=== PATIENT | female | born 1940 | race Caucasian/White ===

== ENCOUNTER 2016-04-23 05:18 | Day surgery (SDC) | payer OTHER ==
[~2016-04-23] VITALS: Ht 160 cm; Wt 79.4 kg
--- NOTE | ~2016-04-23 | O ---
[facility] [place] [address] OPERATIVE REPORT Name: RAINE AGUIRRE Room #: DEP [facility] [place] M.R.#: [id number] Admission: 04/23/16 Attend Phys: Bassem Keane MD Discharge: 04/23/16 Date of : 42 Report #: [id number] THIS REPORT FOR: //name// CC: Juvenal Keane DATE OF SERVICE: 04/23/2016 PREOPERATIVE DIAGNOSIS: Nasal fracture. POSTOPERATIVE DIAGNOSIS: Nasal fracture. NAME OF THE PROCEDURE: Closed nasal fracture reduction. SURGEON: Bassem Keane MD ANESTHESIA: General LMA. INDICATIONS FOR THE PROCEDURE: See H and P. TECHNIQUE: After obtaining consent, she was brought to the operating suite and appropriate timeout was performed. General LMA anesthesia was obtained by anesthesia maintained throughout the case. Nose was prepped and draped in usual sterile fashion. Cottonoids soaked with Afrin were placed in each side of the nares for reduction of congested nasal mucosa. Upon removing these after 3 or 5 minutes, I then used a Lavaca elevator and measured this to the appropriate length just short of the medial canthus. This was introduced into the right naris with significant anterior and slightly lateral distraction, loud audible click was heard and felt by digital manipulation bringing the right fracture fragment anteriorly and back in the location. By visualization, this appeared to improve the nasal airway superiorly slightly. I then used the Jose forceps to make sure disimpaction was equal on both sides and it appeared to be so. At that point, I placed a single piece of Merogel on the right side to help prevent any medialization of the fracture fragment. Mastisol was applied to the skin followed by a brown tape and a Thermoplast splint. She was allowed to awaken from anesthesia and went to recovery room in stable condition. <ELECTRONICALLY SIGNED> By: Bassem Keane MD 04/26/16 0845 1228 1400 Bassem Keane MD /nt
--- NOTE | ~2016-04-23 | EKG ---
[place] [address] [address] [facility] [place] [address] ELECTROCARDIOGRAM REPORT Name: RAINE AGUIRRE Room #: DEP [facility].#: [id number] Admission: 04/23/16 Attend Phys: Bassem Keane MD Discharge: 04/23/16 Date of : 42 Report #: [id number] THIS REPORT FOR: //name// [facility] Test Date: 2016-04-23 Test Time: 10:49:32 Pat Name: RAINE AGUIRRE Department: Room: 150 10 Gender: F Senior Genetic Counselor: GABRIELE : 1940 Requested By: Bassem Keane Order Number: [id number] MD: Armani Franco Measurements Intervals [place] Rate: 76 P: 61 WV: 154 QRS: -60 QRSD: 126 T: 73 QT: 425 QTc: 478 Interpretive Statements Sinus rhythm Ventricular premature complex Nonspecific IVCD with LAD Left ventricular hypertrophy Anterior infarct, old No previous ECG available for comparison Electronically Signed On 04-23-2016 14:59:26 IMMIGRATION COORDINATOR by Armani Franco [email or web address] <ELECTRONICALLY SIGNED> By: Armani Franco MD 04/23/16 1459 1049 1049 Armani Franco MD /ARASH
[~2016-04-23 05:18] MED LIST: ASPIR 8181 MG PO; CALCIUM 600 +1 EAC1 PO; CENTRUM SILVER1 EAC4 PO; GLUMETZA500 PO; HYZAAR 50-12.51 EACH PO; KEFLEX500 MG PO; NEXIUM40 MG PO; NORCO 5-325 TA1 EACH PO; PERCOCET 5-3251 EACH PO; ZOCOR20 MG PO; ZOLOFT25 MG PO
[2016-04-23 11:14] VITALS: BP 147/86
[2016-04-23 11:51] LABS: CREATININE 0.8 mg/dL (0.6-1.3); POTASSIUM 4.1 mmol/L (3.5-5.1)
[2016-04-23 12:54] VITALS: BP 147/86
== END 2016-04-23 13:00 | disposition home or self-care (01) ==
LOC: OR 05:18 → TBA 05:18 → OR 13:00
PROVIDERS: Otolaryngology
DX: S02.2XXA Fracture of nasal bones, initial encounter for closed fracture (principal); I10 Essential (primary) hypertension; E78.00 Pure hypercholesterolemia, unspecified; E11.9 Type 2 diabetes mellitus without complications; K21.9 Gastro-esophageal reflux disease without esophagitis; F17.210 Nicotine dependence, cigarettes, uncomplicated; Z98.890 Other specified postprocedural states; W19.XXXA Unspecified fall, initial encounter; Y93.89 Activity, other specified; Y92.89 Other specified places as the place of occurrence of the external cause; Y99.8 Other external cause status
CPT/HCPCS: 10086; 50010; 50101; 51313; 53635; 62110; 62900; 70005

== ENCOUNTER 2016-10-19 09:52 | Emergency (ER) | payer OTHER ==
[~2016-10-19] VITALS: Ht 160 cm; Wt 82.6 kg
[2016-10-19 10:12] LABS: URINE BILIRUBIN NEGATIVE (Negative); URINE BLOOD NEGATIVE (Negative); URINE COLOR YELLOW; URINE GLUCOSE-RANDOM* NEGATIVE (Negative); URINE KETONES NEGATIVE (Negative); URINE NITRITE NEGATIVE (Negative); URINE PROTEIN (DIPSTICK) NEGATIVE (Negative); URINE UROBILINOGEN 0.2 E.U./dl (0.2-1.0)
[2016-10-19 10:21] LABS: ABSOLUTE NEUTROPHILS 4.3 thou/uL (1.4-8.2); BASOPHILS 0.6 % (0.0-2.0); EOSINOPHILS 4.6 % (0.0-3.0); HEMATOCRIT 42.3 % (37.0-47.0); HEMOGLOBIN 14.6 gm/dL (12.0-15.0); LYMPHOCYTES 38.1 % (24.0-44.0); MANUAL DIFF NO; MCH 29.6 pg (26.0-34.0); MCHC 34.6 g/dL (28.0-37.0); MCV 85.5 fL (80.0-100.0); MONOCYTES 6.8 % (1.0-8.0); PLATELET COUNT 169 thou/uL (150-400); POLYS 49.9 % (36.0-66.0); RBC 4.96 mil/uL (4.20-5.00); RDW 14.9 % (10.5-14.5); WBC 8.7 thou/uL (4.0-11.0)
[2016-10-19 10:48] LABS: ALBUMIN 3.5 g/dL (3.4-5.0); CALCIUM 9.3 mg/dL (8.5-10.1); CREATININE 0.9 mg/dL (0.6-1.0); DIRECT BILIRUBIN 0.1 mg/dL (<0.1-0.3); POTASSIUM 4.1 mmol/L (3.5-5.1); TOTAL BILIRUBIN 0.5 mg/dL (<0.1-1.0); TOTAL PROTEIN 7.1 g/dL (6.4-8.2)
[2016-10-19] MEDS ORDERED: NORCO 5-325 TA1 EACH PO (11:21)
== END 2016-10-19 11:22 | disposition home or self-care (01) ==
LOC: ER 09:52
PROVIDERS: Emergency Medicine
DX: R10.31 Right lower quadrant pain (principal); E11.9 Type 2 diabetes mellitus without complications; E78.00 Pure hypercholesterolemia, unspecified; K21.9 Gastro-esophageal reflux disease without esophagitis; I10 Essential (primary) hypertension; F17.210 Nicotine dependence, cigarettes, uncomplicated; F10.99 Alcohol use, unspecified with unspecified alcohol-induced disorder; Z88.2 Allergy status to sulfonamides

== ENCOUNTER 2017-05-08 19:59 | Inpatient (IN) | payer OTHER ==
[~2017-05-08] VITALS: Ht 157.5 cm; Wt 81.6 kg
[2017-05-08 20:01] VITALS: BP 183/74
[2017-05-08 20:46] LABS: BASOPHILS 0.6 % (0.0-2.0); EOSINOPHILS 4.2 % (0.0-3.0); HEMATOCRIT 39.4 % (37.0-47.0); HEMOGLOBIN 13.5 gm/dL (12.0-15.0); LYMPHOCYTES 38.4 % (24.0-44.0); MCH 29.1 pg (26.0-34.0); MCHC 34.3 g/dL (28.0-37.0); MCV 84.8 fL (80.0-100.0); MONOCYTES 6.4 % (1.0-8.0); PLATELET COUNT 183 thou/uL (150-400); POLYS 50.4 % (36.0-66.0); RBC 4.65 mil/uL (4.20-5.00); RDW 14.5 % (10.5-14.5)
[2017-05-08 20:58] LABS: CALCIUM 9.6 mg/dL (8.5-10.1)
[2017-05-08 21:03] LABS: ALBUMIN 3.5 g/dL (3.4-5.0); DIRECT BILIRUBIN 0.2 mg/dL (<0.1-0.3); TOTAL BILIRUBIN 0.4 mg/dL (<0.1-1.0); TOTAL PROTEIN 7.3 g/dL (6.4-8.2)
[2017-05-08 22:39] LABS: URINE BILIRUBIN NEGATIVE (Negative); URINE BLOOD NEGATIVE (Negative); URINE CLARITY CLEAR; URINE COLOR YELLOW; URINE GLUCOSE-RANDOM* NEGATIVE (Negative); URINE KETONES NEGATIVE (Negative); URINE LEUKOCYTES NEGATIVE (Negative); URINE NITRITE NEGATIVE (Negative); URINE PROTEIN (DIPSTICK) NEGATIVE (Negative); URINE SPECIFIC GRAVITY <= 1.005 (1.005-1.035); URINE UROBILINOGEN 0.2 E.U./dl (0.2-1.0)
[2017-05-08] MEDS ORDERED: PLAVIX 75 MG TA75 M1 PO (23:22)
[2017-05-08] MEDS ORDERED: LOSARTAN-HCTZ1 EACH PO (23:22)
[2017-05-09 04:39] LABS: HEMOGLOBIN 12.4 gm/dL (12.0-15.0); MCH 28.6 pg (26.0-34.0); MCHC 33.4 g/dL (28.0-37.0); MCV 85.6 fL (80.0-100.0); RBC 4.32 mil/uL (4.20-5.00); RDW 14.7 % (10.5-14.5); WBC 7.8 thou/uL (4.0-11.0)
[2017-05-09 04:59] LABS: CALCIUM 8.5 mg/dL (8.5-10.1); CREATININE 0.8 mg/dL (0.6-1.0); POTASSIUM 4.2 mmol/L (3.5-5.1)
[2017-05-09 12:23] VITALS: BP 143/67
[2017-05-09 15:05] VITALS: BP 132/78
[2017-05-09 15:29] VITALS: BP 163/66
[2017-05-09 20:12] VITALS: BP 152/73
[2017-05-10 04:24] VITALS: BP 110/67
[2017-05-10 07:36] VITALS: BP 133/44
[2017-05-10 16:00] VITALS: BP 139/55
[2017-05-10 19:14] VITALS: BP 130/51
[2017-05-11 04:25] VITALS: BP 137/55
[2017-05-11 07:15] VITALS: BP 140/58
[2017-05-11] MEDS ORDERED: AUGMENTIN 875-1 EACH PO (09:48)
[2017-05-11 10:51] VITALS: BP 140/58
== END 2017-05-11 13:57 | disposition home or self-care (01) | DRG 392 ==
LOC: ER 19:59 → EROBS 23:02 → 4S 05-09 14:34
PROVIDERS: Emergency Medicine; Nurse Practitioner Family
DX: K57.32 Diverticulitis of large intestine without perforation or abscess without bleeding (principal); R47.01 Aphasia; N82.8 Other female genital tract fistulae; I69.951 Hemiplegia and hemiparesis following unspecified cerebrovascular disease affecting right dominant side; E11.9 Type 2 diabetes mellitus without complications; K44.9 Diaphragmatic hernia without obstruction or gangrene; I10 Essential (primary) hypertension; E78.5 Hyperlipidemia, unspecified; E66.9 Obesity, unspecified; Z68.32 Body mass index [BMI] 32.0-32.9, adult; K21.9 Gastro-esophageal reflux disease without esophagitis; Z88.2 Allergy status to sulfonamides; Z79.899 Other long term (current) drug therapy; Z79.82 Long term (current) use of aspirin; Z86.711 Personal history of pulmonary embolism; Z90.710 Acquired absence of both cervix and uterus; Z87.891 Personal history of nicotine dependence; I69.920 Aphasia following unspecified cerebrovascular disease
CPT/HCPCS: 10100

== ENCOUNTER 2018-03-15 18:39 | Inpatient (IN) | payer OTHER ==
[~2018-03-15] VITALS: Ht 186.8 cm; Wt 90.1 kg
--- NOTE | ~2018-03-15 | EKG ---
[place] [address] [facility] [place] [address] ELECTROCARDIOGRAM REPORT Name: RAINE AGUIRRE Room #: 201-P ADM IN M.R.#: [id number] Admission: 03/15/18 Attend Phys: Jenaro Morelos MD Discharge: Date of : 42 Report #: [id number] THIS REPORT FOR: //name// [facility] ED Test Date: 2018-03-15 Test Time: 19:07:16 Pat Name: RAINE AGUIRRE Department: Room: 201 Gender: F [employer] Assistant: claudia : 1940 Requested By: Daron Hogue Order Number: [id number] MD: Ray Thompson Measurements Intervals [place] Rate: 80 P: 66 RI: 161 QRS: -60 QRSD: 116 T: 51 QT: 398 QTc: 460 Interpretive Statements Sinus rhythm Multiple ventricular premature complexes right atrial enlargement Left anterior fascicular block Anterior infarct, old Compared to ECG 04/23/2016 10:49:32 no significant changes Electronically Signed On 03-15-2018 23:58:21 FRICTION SAW OPERATOR by Ray Thompson [email or web address] <ELECTRONICALLY SIGNED> By: Ray Thompson MD 03/15/18 3058 [id number] 190 Ray Thompson MD /EPI
[~2018-03-15 18:39] MED LIST changes: +AUGMENTIN 875-1 EACH PO; +LOSARTAN-HCTZ1 EACH PO; +PLAVIX 75 MG TA75 M1 PO
[2018-03-15 18:41] VITALS: BP 109/75
[2018-03-15 19:33] LABS: ABSOLUTE NEUTROPHILS 3.4 thou/uL (1.4-8.2); BASOPHILS 0.7 % (0.0-2.0); EOSINOPHILS 4.3 % (0.0-3.0); HEMATOCRIT 38.6 % (37.0-47.0); HEMOGLOBIN 13.5 gm/dL (12.0-15.0); LYMPHOCYTES 41.8 % (24.0-44.0); MCH 29.1 pg (26.0-34.0); MCHC 34.9 g/dL (28.0-37.0); MCV 83.2 fL (80.0-100.0); MONOCYTES 8.1 % (1.0-8.0); PLATELET COUNT 208 thou/uL (150-400); POLYS 45.1 % (36.0-66.0); RBC 4.64 mil/uL (4.20-5.00); RDW 14.2 % (10.5-14.5); WBC 7.5 thou/uL (4.0-11.0)
[2018-03-15 19:42] LABS: ANION GAP 8 mmol/L (7-16); BUN 18 mg/dL (7-18); CALCIUM 9.4 mg/dL (8.5-10.1); CHLORIDE 101 mmol/L (98-107); CO2 29 mmol/L (21-32); CREATININE 1.1 mg/dL (0.6-1.0); GLUCOSE 127 mg/dL (74-106); POTASSIUM 3.9 mmol/L (3.5-5.1); SODIUM 138 mmol/L (136-145)
[2018-03-15 19:50] LABS: ALBUMIN 3.5 g/dL (3.4-5.0); LIPASE 52 U/L (73-393); SGOT 15 U/L (15-37); SGPT 17 U/L (30-65); TOTAL BILIRUBIN 0.4 mg/dL (<0.1-1.0); TOTAL PROTEIN 7.2 g/dL (6.4-8.2); TROPONIN-I <0.06 ng/mL (<0.06)
[2018-03-15 20:08] LABS: URINE BLOOD NEGATIVE (Negative); URINE CLARITY CLEAR; URINE COLOR YELLOW; URINE GLUCOSE-RANDOM* NEGATIVE (Negative); URINE KETONES 1+ (Negative); URINE LEUKOCYTES-REFLEX NEGATIVE (Negative); URINE NITRITE-REFLEX NEGATIVE (Negative); URINE PROTEIN (DIPSTICK) TRACE (Negative); URINE SPECIFIC GRAVITY >= 1.030 (1.005-1.035)
[2018-03-15 20:09] LABS: ICTOTEST (BILI CONFIRMATORY) Negative (Negative); URINE BILIRUBIN NEGATIVE (Negative)
[2018-03-15 20:24] LABS: HYALINE CASTS 0-3 Few /LPF (None Seen); SQUAMOUS 0-3 Few /LPF (0-3); URINE WBC-REFLEX 6-15 Few /HPF (0-5)
[2018-03-15 20:25] LABS: BACTERIA-REFLEX 1-9 Few /HPF (None Seen); CRYSTALS None Seen /LPF (None Seen); URINE RBC None Seen /HPF (0-2)
[2018-03-15 21:52] VITALS: BP 119/39
[2018-03-15 22:30] VITALS: BP 134/50
[2018-03-15 23:30] LABS: CHOLESTEROL 160 mg/dL (<200); HDL CHOLESTEROL 46 mg/dL (>40); LDL CHOLESTEROL 86 mg/dL (<100); TC:HDL 3.5 Ratio (Not establshd); TRIGLYCERIDE 142 mg/dL (<150); VLDL 28 mg/dL (<40)
[2018-03-15 23:33] LABS: SERUM ASSESSMENT Slight Lipemia
[2018-03-16 03:40] VITALS: BP 126/58
[2018-03-16 05:58] LABS: CALCIUM 8.1 mg/dL (8.5-10.1); CREATININE 0.8 mg/dL (0.6-1.0); POTASSIUM 4.2 mmol/L (3.5-5.1)
[2018-03-16 08:44] VITALS: BP 101/54
[2018-03-16 10:31] VITALS: BP 109/71
[2018-03-16 15:16] VITALS: BP 140/53
[2018-03-16 20:27] VITALS: BP 127/47
[2018-03-16 22:06] LABS: GLYCOHEMOGLOBIN (HGB A1C) 6.5 % (4.8-5.6)
[2018-03-17 04:06] LABS: ABSOLUTE NEUTROPHILS 3.2 thou/uL (1.4-8.2); BASOPHILS 0.8 % (0.0-2.0); EOSINOPHILS 5.3 % (0.0-3.0); HEMATOCRIT 33.5 % (37.0-47.0); LYMPHOCYTES 36.2 % (24.0-44.0); MCH 28.7 pg (26.0-34.0); MCHC 33.9 g/dL (28.0-37.0); MCV 84.5 fL (80.0-100.0); MONOCYTES 6.6 % (1.0-8.0); PLATELET COUNT 171 thou/uL (150-400); POLYS 51.1 % (36.0-66.0); RBC 3.97 mil/uL (4.20-5.00); RDW 14.3 % (10.5-14.5); WBC 6.3 thou/uL (4.0-11.0)
[2018-03-17 04:08] LABS: HEMOGLOBIN 11.4 gm/dL (12.0-15.0)
[2018-03-17 04:15] LABS: CALCIUM 8.9 mg/dL (8.5-10.1); CREATININE 0.7 mg/dL (0.6-1.0); POTASSIUM 3.9 mmol/L (3.5-5.1)
[2018-03-17 05:30] VITALS: BP 144/64
[2018-03-17 07:15] VITALS: BP 143/62
[2018-03-17 11:15] VITALS: BP 136/51
[2018-03-17 15:25] VITALS: BP 123/46
[2018-03-17 20:07] VITALS: BP 122/62
[2018-03-18 04:45] VITALS: BP 145/60
[2018-03-18] MEDS ORDERED: AZITHROMYCIN 2250 MG PO (09:36)
[2018-03-18] MEDS ORDERED: CEFUROXIME250 MG PO (09:37)
[2018-03-18 10:00] VITALS: BP 145/60
== END 2018-03-18 11:25 | disposition home or self-care (01) | DRG 682 ==
LOC: ER 18:39 → EROBS 21:01 → 2N 21:01 → ENTRNSPT 03-18 11:04 → EDTRNSPTSTS 03-18 11:06 → 2N 03-18 11:25
PROVIDERS: Emergency Medicine; Family Medicine; Nurse Practitioner Family
DX: N17.0 Acute kidney failure with tubular necrosis (principal); J18.9 Pneumonia, unspecified organism; J96.01 Acute respiratory failure with hypoxia; I69.351 Hemiplegia and hemiparesis following cerebral infarction affecting right dominant side; N82.4 Other female intestinal-genital tract fistulae; K52.9 Noninfective gastroenteritis and colitis, unspecified; F03.90 Unspecified dementia, unspecified severity, without behavioral disturbance, psychotic disturbance, mood disturbance, and anxiety; F32.9 Major depressive disorder, single episode, unspecified; M62.84 Sarcopenia; E11.9 Type 2 diabetes mellitus without complications; E78.00 Pure hypercholesterolemia, unspecified; K21.9 Gastro-esophageal reflux disease without esophagitis; I10 Essential (primary) hypertension; K57.90 Diverticulosis of intestine, part unspecified, without perforation or abscess without bleeding; F17.210 Nicotine dependence, cigarettes, uncomplicated; Z90.49 Acquired absence of other specified parts of digestive tract; I69.320 Aphasia following cerebral infarction; Z90.710 Acquired absence of both cervix and uterus; Z86.711 Personal history of pulmonary embolism; Z87.81 Personal history of (healed) traumatic fracture; Z79.02 Long term (current) use of antithrombotics/antiplatelets; Z79.899 Other long term (current) drug therapy; Z88.2 Allergy status to sulfonamides; Z80.0 Family history of malignant neoplasm of digestive organs
CPT/HCPCS: 10081

== ENCOUNTER 2019-10-13 16:10 | Inpatient (IN) | payer OTHER ==
[~2019-10-13] VITALS: Ht 157.5 cm; Wt 87.0 kg
[~2019-10-13 16:10] MED LIST changes: +AZITHROMYCIN 2250 MG PO; +CEFUROXIME250 MG PO
[2019-10-15] MEDS ORDERED: ZOLOFT50 M1 PO (12:47)
[2019-10-15] MEDS ORDERED: HYZAAR 50-12.51 EACH PO (12:48)
[2019-10-15] MEDS ORDERED: METFORMIN HCL500 M3 PO (12:51)
[2019-10-15] MEDS ORDERED: ASPIRIN325 PO (12:53)
[2019-10-15] MEDS ORDERED: KEFLEX500 M1 PO (13:03)
[2019-10-15] MEDS ORDERED: LIPITOR40 MG PO (13:16)
[2019-10-15] MEDS ORDERED: COZAAR 50 MG TA50 M1 PO (13:17)
[2019-10-15] MEDS ORDERED: KEPPRA 500 MG500 MG PO (13:22)
--- NOTE | 2019-10-15 14:50 | NUR ---
chart review, cm consult. noted in chart, pt came from [facility] [place], dx cva, seizure and uti. contacted for sheila is daughter who is physician Shanthi Paiz and will be ok to visit as well. cm went to room 514 and she has not arrived yet. noted that pt lives with daughter and has support if needed. will cont following as needed for dc needs.
[2019-10-15 16:40] VITALS: BP 146/69
--- NOTE | 2019-10-15 18:31 | NUR ---
1630 ADMITTED TO ROOM 513. PATIENT IS ALERT AND ORIENTEDX3. PATIENT IS FORGETFUL AND NEED FREQ CUEING TO WHERE SHE IS. PATIENT IS VERY [place]. PATIENT HAS RIGHT SIDED WEAKNESS. HAILEE AND DR. MAN HERE TO SEE PATIENT. LUNGS ARE CLEAR AND DEMINISHED. ABD IS SOFT WITH BSX4. UP IN BED FOR DINNER. PATIENT HAS BLADDER RETENTION AND GETS SCANNED Q12 HOURS. PATIENT IS UP WITH ASSIST OF 2 STAFF TO BSC. FALL AND SAFETY PROTOCOLS IN PLACE. DENIES PAIN. WILL GET PT/OT/ST EVALS IN A.M. PATIENT HAS BILATERAL HEARING AIDES AND GLASSES. SHE HAS HER OWN TEETH. ATE 50% OF DINNER. WILL CONTINUE TO MONITER.
[2019-10-15 20:00] VITALS: BP 119/69
--- NOTE | 2019-10-16 01:54 | NUR ---
BLADDER SCAN AT 1900 SHOWED 231, 3 HOURS LATER SHOWED 91 WITH BRIEF BARELY WET, BRIEF REMOVED. AT 0130, PATIENT AWAKE AND INFORMED STAFF ON ROUNDS "I'M WET AND INDEED SHE WAS. VOID FAIR AMOUNT WITH SMEAR OF STOOL. CLEANED AND TURNED TO RIGHT SIDE WITH SMALL PILLOW BETWEEN KNEES. SEIZURE PADS RE-APPLIED PATIENT STATED THAT THEY "ARE THERE TO KEEP ME COMPANY" TOOK MEDS WITH SIPS OF WATER AT HS. PLEASANTNESS APPARENT DESPITE APHASIA
[2019-10-16 06:14] LABS: HEMATOCRIT 36.6 % (37.0-47.0); HEMOGLOBIN 12.6 gm/dL (12.0-15.0); MCH 28.9 pg (26.0-34.0); MCHC 34.4 g/dL (28.0-37.0); MCV 84.2 fL (80.0-100.0); RBC 4.34 mil/uL (4.20-5.00); RDW 16.1 % (10.5-14.5)
[2019-10-16 06:33] LABS: CALCIUM 8.6 mg/dL (8.5-10.1); CREATININE 0.7 mg/dL (0.6-1.0); POTASSIUM 3.4 mmol/L (3.5-5.1)
[2019-10-16 08:00] VITALS: BP 133/57
--- NOTE | 2019-10-16 10:49 | NUR ---
ASSUME PT CARE AT 0700. REPORTS SHE SLEPT GOOD LAST NIGHT. PATIENT IS ALERT AND ORIENTEDX3. PATIENT IS FORGETFUL AND NEED FREQ CUEING TO WHERE SHE IS. PATIENT IS VERY RAMPART.PATIENT HAS BILATERAL HEARING AIDES AND GLASSES. SHE HAS HER OWN TEETH. PATIENT HAS RIGHT SIDED WEAKNESS. ASSISTED WITH TRAY PT ABLE TO EAT HER BREAKFAST. PT REFUSES TO EAT. C/O NECK PAIN 09/28, PRN TYLENOL GIVEN. PAIN IS GONE NOW. PT UP WITH WALKER WITH MIN ASSIST, WALKING TO THE GYM AND WORKING WITH PHYSICAL THERAPIST NOW. OFFERED SUPPORTIVE CARE. ENCOURAGED PT TO VOICE HER NEEDS. REASSESSMENT PER CHART. LABS REVIEWED. NOTIFIED DR. MAN PT'S CHEST XRAY RESULT FOR COUGH TODAY AND K 3.4. RECEIVED ORDER FOR POTASSIUM REPLACEMENT 40MEQ. MEDS GIVEN WITH WATER ONE AT THE TIME. TOLERATES SWALLOWING FINE. ABD IS SOFT WITH BSX4. LAST BM WAS 10/13 PER NIGHT RN. PATIENT HAS BLADDER RETENTION AND GETS SCANNED Q12 HOURS. FALL AND SAFETY PROTOCOLS IN PLACE. WILL CONTINUE TO MONITOR.
--- NOTE | 2019-10-16 14:30 | NUR ---
SPIRITUAL CARE CONSULT [id number] WAS COMPLETED BY THIS TUBE BALANCER.
[2019-10-16 19:44] VITALS: BP 165/70
--- NOTE | 2019-10-17 02:36 | NUR ---
PT LYING IN BED. DENIES PAIN. INCONTINENT OF URINE THIS SHIFT. RESTING COMFORTABLY. NO NEEDS VOICED. CALL LIGHT WITHIN REACH. FREQUENT OBSERVATION.
[2019-10-17 08:00] VITALS: BP 125/110
--- NOTE | 2019-10-17 18:45 | NUR ---
ASSUMED CARE OF PT AT 0700. PT IS A&OX1 AND VITAL SIGNS ARE STABLE. PT IN NO APPARENT PAIN AND UNABLE TO RESPOND APPROPRIATELY TO MOST QUSTIONS. ACCU CHECK IN AM. INCONTINENT OF BLADDER, BLADDER SCAN Q12 HOURS. MODERATE ASSIST WITH FEEDING AND REQUIRES CUES TO INITIATE EATING AND DRINKING. PT IN AM UNABLE TO SWALLOW MEDICATIONS ONE AT A TIME WITH THIN LIQUIDS, AT NEXT MEDICATION PASS PT WAS GIVEN MEDS WHOLE IN APPLESAUCE AND STILL STRUGGLED, CRUSHED MEDICATIONS IN APPLESASUCE TOLERATED IN EVENING. PT COUGHING WITH EYES WATERING DURING MEDICAITON PASS AND AT TIMES DURING MEALS. PT STRUGGLES TO FOLLOW DIRECTIONS OR RESPOND APPROPRIATELY TO CUES. FALL PRECAUTIONS IN PLACE AND NURSING WILL CONTINUE TO MONITOR.
[2019-10-17 19:38] VITALS: BP 176/78
[2019-10-17 21:45] VITALS: BP 150/66
--- NOTE | 2019-10-18 02:44 | NUR ---
PT ASSESSMENT COMPLETED AND VSS. MEDS GIVEN ORDERED AND WELL TOLERATED. FALL PRECAUTIONS IN PLACE. BED PADDED. MEDS GIVEN ORDERED. ASST WITH REPOSITION FOR COMFORT. DENIES NEEDS. WILL CONTINUE TO MONITOR FREQUENTLY.
[2019-10-18 07:50] VITALS: BP 168/73
--- NOTE | 2019-10-18 09:55 | NUR ---
chart review, cm visited with pt. cm cont to wear own facial mask during visit. noted pt was able to verbal respond with 1 or possible 2 single words during visit " ok, yes" with smiling facial expression"/sheila. noted in chart pt lives with daughter, who dr polk er physician. will cont following as needed for dc needs.
--- NOTE | 2019-10-18 12:56 | NUR ---
Nutrition: pt admit with acute subcortical infarct to rehab unit. PMH: CVA, HTN, NIDDM, diverticulitis. Received admission orders consult. PO average 42% past 2 days per records. Does have some aphasia but was able to report decreased appetite lately. ST working with pt, eating slowly but had consumed 50% of hamburger so far at time of visit. Likely no diet change per ST. BG controlled. No weight decline per hx past several years. Vitamin D 12.4. Recommend vitamin D supplementation. No intervention at this time. Low risk.
--- NOTE | 2019-10-18 12:59 | NUR ---
Nutrition: Vitamin D 12.4. REC supplementation.
--- NOTE | 2019-10-18 16:48 | NUR ---
PATIENT'S DAUGHTER REQUESTING THAT THE MD PLEASE ADDRESS THAT SHE WAS PREVIOUSLY ON FLOMAX, AND THIS WAS NOT RESTARTED WHEN SHE CAME TO REHAB. THIS SHOULD BE RESTARTED, PER DAUGHTER, IF MD AGREES. DAUGHTER IS CONCERNED WITH ACUTE CHANGE TO MENTAL STATUS TODAY, WITH DECREASED LEVEL OF CONSCIOUSNESS. DR. CENTENO HAS BEEN NOTIFIED AND STAT HEAD CT HAS BEEN ORDERED. DAUGHTER IS CONCERNED REGARDING THE CXR AND LOC CHANGES WELL. NATALIE FIGUEROA WAS PAGED AND AWAITING A CALL BACK REGARDING SUSPICION OR QUESTION OF CHEST XRAY. DAUGHTER IS CONCERNED THAT NO ONE CALLED HER THIS AM REGARDING THIS CHANGE IN HER LOC, SHE INVITED STAFF TO CALL HER WITH UPDATES AND QUESTIONS AT ANY TIME. SHE STATED THAT SHE NEEDED A CALL THIS AM PRIOR TO FINDING HER MOTHER'S LOC TODAY. THESE CONCERNS WERE NOTED TO THE NM, AND WILL BE NOTED TO DR. HERNANDEZ A MESSAGE.
--- NOTE | 2019-10-18 16:49 | NUR ---
ASSUMED CARE OF PT AT 0700. PT IS ALERT AND ORIENTED TO PERSON ONLY. PT UNABLE TO RESPOND APPROPRIATELY TO QUESTIONS OR CUES. CONCERNS ABOUT SWALLOWING SAFETY ADDRESSED WITH DR HERNANDEZ AND SPEECH THERAPY. SEIZURE PRECAUTIONS IN PLACE. ACCU CHECKS IN AM. PT DOES NOT APPEAR IN PAIN, PT PARTICIPATED IN SCHEDULED THERAPIES. DAUGHTER ON UNIT THIS EVENING. EXPRESSED CONCERN THAT PT HAS HAD A SIGNIFICANT DECLINE SINCE FRIDAY. "WHEN I SAW HER LAST FRIDAY, SHE WAS ABLE TO HAVE A FULL CONVERSATION WITH ME". DAUGHTER REQUESTED TO TALK TO HOSPITALIST TEAM, SOW FARM MANAGER NOTIFIED AND SPOKE WTIH DAUGHTER. HEAD CT ORDERED, UA ORDERED, NEUROLOGY CONSULTED. DAUGHTER REPORTS CONCERNS THAT FLOMAX WAS NOT STARTED OVER WEAKEND AND THAT FOLLOWING CHEST X-RAY THERE WAS "NO FOLLOW-UP". SOW FARM MANAGER AWARE OF CONCERNS. FALL PRECAUTIONS IN PLACE AND NURSING WILL CONTINUE TO MONITOR.
[2019-10-18 20:00] VITALS: BP 145/63
--- NOTE | 2019-10-19 03:05 | NUR ---
assumed care at approx 1900 evening 10/17. pt lying in bed with head of bed elevated at change of shift. bed with padded sides. pt awake and oriented x4. pt with some expressive aphasia. pt took meds crushed in applesauce and yogurt tolerating well. pt appears to be sleeping well with hourly rounding. bed alarm on and call light in reach. will continue to monitor.
[2019-10-19 06:09] LABS: ABSOLUTE NEUTROPHILS 3.3 thou/uL (1.4-8.2); BASOPHILS 0.5 % (0.0-2.0); EOSINOPHILS 3.2 % (0.0-3.0); HEMOGLOBIN 12.2 gm/dL (12.0-15.0); MCH 28.7 pg (26.0-34.0); MCHC 33.8 g/dL (28.0-37.0); MCV 84.8 fL (80.0-100.0); MONOCYTES 9.4 % (1.0-8.0); PLATELET COUNT 183 thou/uL (150-400); POLYS 50.9 % (36.0-66.0); RBC 4.25 mil/uL (4.20-5.00); RDW 16.3 % (10.5-14.5); WBC 6.4 thou/uL (4.0-11.0)
[2019-10-19 06:28] LABS: CREATININE 0.9 mg/dL (0.6-1.0); MAGNESIUM 1.8 mg/dL (1.8-2.4); POTASSIUM 4.1 mmol/L (3.5-5.1)
[2019-10-19 06:57] LABS: URINE BILIRUBIN NEGATIVE (Negative); URINE BLOOD NEGATIVE (Negative); URINE CLARITY CLEAR; URINE COLOR YELLOW; URINE GLUCOSE-RANDOM* NEGATIVE (Negative); URINE KETONES NEGATIVE (Negative); URINE LEUKOCYTES-REFLEX NEGATIVE (Negative); URINE NITRITE-REFLEX NEGATIVE (Negative); URINE PROTEIN (DIPSTICK) NEGATIVE (Negative); URINE SPECIFIC GRAVITY 1.025 (1.005-1.035); URINE UROBILINOGEN 0.2 E.U./dl (0.2-1.0)
[2019-10-19 07:40] VITALS: BP 130/58
--- NOTE | 2019-10-19 08:07 | NUR ---
ASSUMED CARE AT 0700. PATIENT IS ALERT AND ORIENTED X4 WITH A FLAT AFFECT. PATIENT HAS EXPRESSIVE APHAGIA. PATIENT IS BLACKFEET AND ON SEIZURE PRECAUTIONS. PATIENT HAS RIGHT SIDED WEAKNESS.LUNGS ARE CLEAR. ABD IS SOFT WITH BSX4. PATIENT WAS STAIGHT CATHED FOR UA THIS A.M. WHICH WAS NEGATIVE FOR UTI . FALL AND SAFETY PROTOCOLS IN PLACE. DENIES ANY PAIN AT THIS UZMA. CONTINUES TO PROGESS SLOWLY TOWARDS D/C GOALS. WILL CONTINUE TO MONITER.
--- NOTE | 2019-10-19 12:37 | NUR ---
team meeting, recommendation: neuro consulted, spoke with daughter declined any other work up. dc 11/02 with 24hr supervision and assistance. possible need wheel chair and other dme in home for dc.
[2019-10-19 20:19] VITALS: BP 146/51
--- NOTE | 2019-10-20 04:42 | NUR ---
Assumed pt care at 1900. A/OX3,able to make needs known has expressive aphasia at times. VSS. Denies pain on assessment. Took HS meds crushed in applesauce without any problems. PO intake encouraged, hasn't peed yet, bladder scan at midnight showed 251cc prompted pt several times to attempt to void but declined need to. Will recheck again this AM.Repositioned as tolerated. Seizures precautions in place,fall precautions in place. Resting quietly at at this time eyes closed w/o any distress, will continue to monitor pt.
[2019-10-20 08:00] VITALS: BP 139/60
--- NOTE | 2019-10-20 10:41 | NUR ---
ASSUMED CARE AT 0700. PATIENT IS ALERT AND ORIENTED X3. PATIENT IS VERY [place]. HEARING AIDS PUT IN. UP IN CHAIR AND OUT TO THE DINING ROOM FOR BREAKFAST. PATIENT IS ASSIST FEED TODAY. PATIENT TOOK MEDS IN APPLESAUCE. PATENT HAS RIGHT SIDED WEAKNESS. PATIENT IS UP WITH ASSIST OF 2 STAFF TO W/C. PATIENT LUNGS ARE CLEAR AND DEMINISHED . ABD IS SOFT WITH BSX4. PATIENT HAS URINARY RETENTION AND IS INCONTINENT OF URINE. NEXT BLADDER SCAN AT 1200. WILL CONTINUE TO TRY TIMED VOIDS. FALL AND SAFETY PROTOCOLS IN PLACE. DENIES PAIN AT THIS TIME. CONTINUES TO PROGRESS SLOWLY TOWARDS D/C GOALS. WILL CONTINUE TO MONITER.
[2019-10-20 19:05] VITALS: BP 135/56
--- NOTE | 2019-10-21 03:15 | NUR ---
TURNED TO SIDE WITH MIN ASSIST FROM STAFF, PILLOW SUPPORT ONCE ON SIDE. VOIDED AT SHIFT CHANGE, UP WITH 2P ASSIST TO BSC UNABLE TO VOID AT 2330, BVI SHOWS ONLY 65 CC, WILL CHECK AND TRY VOID AGAIN THIS MORNING. PLEASANT AND ABLE TO SAY 'YES' TO QUESTIONS.
--- NOTE | 2019-10-21 05:14 | NUR ---
BVI= 296, UP TO WC (HER CHOICE) THEN TO BSC FOR UNSUCCESSFUL VOID ATTEMPT
[2019-10-21 08:00] VITALS: BP 133/68
[2019-10-21 15:17] VITALS: BP 133/63
[2019-10-21 20:00] VITALS: BP 143/67
[2019-10-21 20:24] VITALS: BP 143/58
--- NOTE | 2019-10-21 20:58 | NUR ---
ASSUMED CARE OF PT AT 0700. PT IS A&OX1. SLIGHTLY ELEVATED TEMP THIS AM, WNL ON RECHECK, WILL CONTINUE TO MONITOR PT FOR S/S OF INFECTION. ACCU CHECK IN AM. DUE TO PT SWALLOWING PRECAUTIONS MEDICATIONS REVEIEWED WITH PHARMACIST. ADVISED TO HAVE ORDERS FOR KEPPRA AND METFORMIN CHANGED DUE TO NEED FOR CRUSHING MEDICATIONS. ORDERS CHANGED. BLADDER SCAN PER ORDERS, SCAN SHOWED RESIDUAL OF 491 AND PT UNABLE TO VOID AFTER MULTIPLE ATTEMPTS. STRAIGHT CATH COMPLETED AND 500ML DRAINED FROM BLADDER. URINE DARK YELLOW, CLEAR, NO ABNORMAL SMELL OR NOTED SEDIMENT. PT ENCOURAGED TO DRINK FLUIDS BY NURSING STAFF. FALL PRECAUTIONS IN PLACE NURSING WILL CONTINUE TO MONITOR.
--- NOTE | 2019-10-22 04:00 | NUR ---
UP TO WC AND THEN TO TOILET WITH MOD ASSIST OF 2 USING GAIT BELT. MOD BM AND VOID OF 120 CC (SHK=504 PRIOR AND 191 POST-VOID) TURNED TO SIDE WITH MIN ASSIST. PATIENT TAKING PILLS IN APPLESAUCE, ATORVASTIN WAS CRUSHED. SIPS OF NECTAR THICK TEA
[2019-10-22 07:30] VITALS: BP 180/57
[2019-10-22 08:00] VITALS: BP 180/57
--- NOTE | 2019-10-22 11:39 | H ---
[facility] [place] [address] HISTORY AND PHYSICAL Name: RAINE AGUIRRE Room #: 504-1 ADM IN M.R.#: [id number] Admission: 10/15/19 Attend Phys: Kevin Sanchez MD Discharge: Date of : 42 Report #: [id number] THIS REPORT FOR: cc: Juvenal Donis MD,Juvenal Sanchez,Kevin Esteves MD ~ CC: Kevin Donis DATE OF SERVICE: 10/15/2019 HISTORY AND PHYSICAL/POST-ADMISSION PHYSICIAN EVALUATION HISTORY OF PRESENT ILLNESS: The patient is a 79-year-old white female originally admitted to [facility] with complaints of aphasia, bilateral lower extremity weakness. MRI confirmed an acute subcortical infarct, left medial frontal lobe and multiple old infarcts. She also was found to have seizures and started on Keppra. She was diagnosed with UTI and placed on IV antibiotics, which were transitioned over to oral antibiotics. She has lumbosacral radiculopathy with moderate neural foraminal narrowing at L5-S1. The patient was noted to have a significant decrease in her overall functional independence and was admitted for acute in-hospital inpatient rehabilitation. PAST MEDICAL HISTORY: Prior medical history includes prior stroke about a year and half ago with some right-sided weakness with minimal residual. She has a history of diverticulitis, hypertension, non-insulin dependent diabetes mellitus, depression, pulmonary embolism. PAST SURGICAL HISTORY: Includes hysterectomy, cholecystectomy, T and A. MEDICATIONS: Please see the full medication listing. ALLERGIES: SULFA. SOCIAL HISTORY: Her daughter was previously working as an Emergency Room physician, but is not working at home. The patient lives at home with her 2 daughters and two grandsons. She has 4 steps in and 11 steps inside. She utilized a 4-wheeled walker in the community and no device in the home. She is independent with ADLs and her daughters provide IADLs. She will have 24-hour supervision upon returning back home. REVIEW OF SYSTEMS: She did not offer any complaints of chest pain, shortness of breath or abdominal discomfort. No complaints of visual problems, swallowing difficulties, low back pain. No skin care issues. PHYSICAL EXAMINATION: [facility] [address] [place] [address] HISTORY AND PHYSICAL Name: RAINE AGUIRRE Room #: 504-1 ADM IN [facility].#: [id number] Admission: 10/15/19 Attend Phys: Kevin Sanchez MD Discharge: Date of : 42 Report #: [id number] GENERAL: A 79-year-old female was seen yesterday in exam. VITAL SIGNS: Temperature was 36.6, pulse 67, respirations 16, blood pressure 146/69. The patient's daughter was also in the examination room. HEENT: Appeared to be benign. She was slow with her responses with a definite delay. She can follow basic 1 step commands. She tends to defer any more complex questions to her daughter. EOMs appeared to be full. No obvious visual field neglect. CHEST: Sounded clear to auscultation. CARDIOVASCULAR: Regular rate and rhythm. ABDOMEN: Bowel sounds positive, nontender. GENITOURINARY AND RECTAL: Deferred. EXTREMITIES: She has functional range of motion of both upper extremities. Strength is grade 4-/5. DTRs are trace to 1. Lower extremities, no focal calf swelling, functional range of motion with strength grade 4-/5. DTRs are trace to 1. No focal calf swelling. Functionally, she has been min assist coming to stand, min assist to try to ambulate with 4-wheeled walker. Appears to have some decreased right-sided attention and the daughter notes she appears to have some right-sided neglect. ASSESSMENT: A 79-year-old white female with the following problem list: 1. Acute left subcortical infarct, left medial frontal lobe. 2. Seizure disorder. 3. Multiple old infarcts. 4. History of a prior CVA with some right-sided weakness and expressive aphasia approximately a year and half ago. 5. Urinary tract infection. 6. Lumbosacral radiculopathy. 7. Metabolic encephalopathy. 8. Diabetes mellitus type 2, hemoglobin A1c was 7.0. 9. Hypertension. 10. Depression, anxiety. 11. Gastroesophageal reflux disease. 12. History of tobacco abuse. PLAN: The patient is admitted for acute in-hospital inpatient rehabilitation. From a post-admission physician evaluation perspective, there are no relevant changes since the preadmission screening. Please see the above review of prior and current medical and functional conditions and comorbidities. Please see the patient's previous and current functional status. As far as risk of complications, the patient has multiple medical comorbidities as noted above. Initial plan of care involves the interdisciplinary acute inpatient rehabilitation program. Measurable functional goals would be for the patient to become modified independent with transfers, mobility, ADLs, hopefully return back to her prior living situation. Prognosis is reasonably good with estimated length of stay probably at least 10 days to 2 weeks. Potential [facility] [address] [place] [address] HISTORY AND PHYSICAL Name: RAINE AGUIRRE Room #: 504-1 ADM IN M.R.#: [id number] Admission: 10/15/19 Attend Phys: Kevin Sanchez MD Discharge: Date of : 42 Report #: [id number] barriers would include her multiple medical comorbidities and decreased functional status. Please see the history and physical documentation as well. <ELECTRONICALLY SIGNED> By: Kevin Sanchez MD 10/22/19 1139 1058 1144 Kevin Sanchez MD /[facility]
--- NOTE | 2019-10-22 11:39 | PLAN ---
[facility] [place] [address] REHAB UNIT PLAN OF CARE Name: RAINE AGUIRRE Room #: 504-1 ADM IN M.R.#: [id number] Admission: 10/15/19 Attend Phys: Kevin Sanchez MD Discharge: Date of : 42 Report #: [id number] THIS REPORT FOR: //name// CC: Kevin Donis DATE OF SERVICE: 10/18/2019 PROGRESS NOTE AND OVERALL PLAN OF CARE SUBJECTIVE: The patient is seen back today in followup. She is in no distress. There is a definite slowness to her responses, but she follows basic 1 step commands. No focal neurologic changes are noted. She has seizure precautions in place. Transfers have been min assist. She has been ambulating up to 100 feet with a front-wheeled walker with assistance as noted. Lower body dressing is dependent. Speech Therapy is following and she is noted to have severe cognitive deficits. She has expressive skills that are moderate to severely impaired as well. ASSESSMENT: 1. Acute left subcortical infarct, left medial frontal lobe. 2. Seizure disorder. 3. Multiple old infarcts. 4. History of prior cerebrovascular accident with some right-sided weakness and expressive aphasia approximately a year and half ago. 5. Urinary tract infection. 6. Lumbosacral radiculopathy. 7. Metabolic encephalopathy. 8. Diabetes mellitus type 2. 9. Hypertension. 10. Depression and anxiety. 11. Gastroesophageal reflux disease. 12. History of tobacco abuse. PLAN: The overall plan of care is based on the preadmission screen, post-admission physician evaluation and information garnered from therapy assessments. 1. Estimated length of stay is at least 10 days to 2 weeks. 2. Medical prognosis is reasonably good. 3. Anticipated interventions includes the interdisciplinary acute inpatient rehabilitation program. 4. Anticipated functional outcomes would be for the patient to improve as far as gait, transfers, mobility, ADLs, cognition and we will also check swallowing with hopes of returning back home with family. Goal would be for her to be up with the walker. 5. Discharge destination would be back home with her daughters staying with her. 6. Expected therapy by discipline includes PT, OT and [address] [address] REHAB UNIT PLAN OF CARE Name: RAINE AGUIRRE Room #: 504-1 ADM IN [facility]#: [id number] Admission: 10/15/19 Attend Phys: Kevin Sanchez MD Discharge: Date of : 42 Report #: [id number] speech 1 hour per day each five days a week throughout the duration of the acute inpatient rehabilitation stay. <ELECTRONICALLY SIGNED> By: Kevin Sanchez MD 10/22/19 1139 0917 0956 Kevin Sanchez MD /nt
--- NOTE | 2019-10-22 14:43 | NUR ---
ASSUMED CARE AT 0700. REPORTS SLEPT GOOD LAST NIGHT. PATIENT IS ALERT AND ORIENTED X3. PATIENT IS VERY [place]IN[place]. HEARING AIDS IN PLACE. CONTINUE TO BE ON SEIZURE PRECAUTION. PT UP IN CHAIR AND OUT TO THE DINING ROOM FOR MEALS. PATIENT IS ASSIST FEED, DOESN'T EAT MUCH. MEDS CRUSHED AND GIVEN WITH APPLESAUCE. PATENT HAS RIGHT SIDED WEAKNESS. PATIENT IS UP WITH ASSIST WALKER, MAX ASSIST WITH CUEING. PATIENT LUNGS ARE CLEAR AND DIMINISHED . ABD IS SOFT WITH BSX4. PATIENT HAS URINARY RETENTION, ON FLOMAX, ASSISTED TO BATHROOM AT 1130. BLADDER SCAN AFTER VOID. NO RESIDUAL AT THIS MOMMENT. FALL AND SAFETY PROTOCOLS IN PLACE. DENIES PAIN AT THIS TIME. PARTICIPATED WITH THERAPY AND TOLERATED WELL. RESTING IN RECLINER AT THIS MOMENT. WATCHING ETWN. CONTINUES TO PROGRESS SLOWLY TOWARDS D/C GOALS. WILL CONTINUE TO MONITOR.
[2019-10-22 20:00] VITALS: BP 105/60
--- NOTE | 2019-10-23 02:16 | NUR ---
assumed care approx 1900 evening 10/21. pt sitting up in recliner at change of shift resting. pt pleasant and cooperative. pt assisted into bathroom with walker and on toilet however pt with no voiding. pt took hs meds crushed with applesauce tolerating well. pt appears to be sleeping soundly with hourly rounding checks. bed alarm on and call light in reach. will continue to monitor.
[2019-10-23 08:16] VITALS: BP 121/96
--- NOTE | 2019-10-23 14:39 | NUR ---
ASSUMED CARE AT 0700. REPORTS SLEPT GOOD LAST NIGHT. BS WAS 364 AT 6AM, ASSISTED PT TO BATHROOM. HAD 100CC RICKY URINE. ENCOURAGED PT TO DRINK MORE. ASSISTED PT TO BATHROOM AFTER LUNCH. PT HAD ANOTHER 100CC RICKY URINE, HAS 253 RESIDUAL AT THIS MOMENT. WILL CONTINUE TO MONITOR. SHIFT NOTE: PATIENT IS ALERT AND ORIENTED X3. PATIENT IS VERY [place]. HEARING AIDS IN PLACE. CONTINUE TO BE ON SEIZURE PRECAUTION. PT UP IN CHAIR AND OUT TO THE DINING ROOM FOR MEALS FOR SUPERVISION. ENCOURAGED FAMILY TO BRING FOOD. SHE ATE 75% LUNCH OF WHAT HER DAUGHTER BROUGHT IN COMPARE WITH THE PORTION SHE HAD ON HER LUNCH TRAY. MEDS CRUSHED AND GIVEN WITH APPLESAUCE. PATENT HAS RIGHT SIDED WEAKNESS. PATIENT IS UP WITH ASSIST WALKER, MAX ASSIST WITH CUEING. PATIENT LUNGS ARE CLEAR AND DIMINISHED . ABD IS SOFT WITH BSX4 FALL AND SAFETY PROTOCOLS IN PLACE. DENIES PAIN AT THIS TIME. PARTICIPATED WITH THERAPY AND TOLERATED WELL. RESTING IN BED AT THIS MOMENT. WATCHING ETWN. CONTINUES TO PROGRESS SLOWLY TOWARDS D/C GOALS. WILL CONTINUE TO MONITOR.
[2019-10-23 19:48] VITALS: BP 149/64
--- NOTE | 2019-10-24 01:42 | NUR ---
PT LYING IN BED. INCONTINENT. DENIES PAIN. RESTING COMFORTABLY. NO NEEDS VOICED. CALL LIGHT WITHIN REACH. FREQUENT OBSERVATION.
--- NOTE | 2019-10-24 10:22 | HC ---
[facility] [place] [address] CONSULTATION Name: RAINE AGUIRRE Room #: 504-1 ADM IN M.R.#: [id number] Admission: 10/15/19 Attend Phys: Kevin Sanchez MD Discharge: Date of : 41 Report #: [id number] THIS REPORT FOR: cc: Juvenal Donis MD, Harry MD Deutch,Karthik Simmons. PhD ~ CC: Kevin Donis DATE OF SERVICE: 10/15/2019 NEUROBEHAVIORAL STATUS EXAMINATION ATTENDING PHYSICIAN: Kevin Sanchez MD WAFER PRODUCTION LEAD WORKER: Karthik Cole, PhD CLINICAL PRESENTATION: The patient is a 79-year-old female admitted to the [facility] Rehabilitation Unit for a comprehensive inpatient rehabilitation program. She was originally admitted to [facility] with complaints of aphasia and bilateral lower extremity. MRI revealed an acute subcortical infarction in the left medial frontal lobe and multiple old infarcts. The patient also was diagnosed with a seizure disorder and started on Keppra. She has a past medical history that included stroke about a year and half ago, right-sided weakness with minimal residual. A history of diverticulitis, hypertension, non-insulin dependent diabetes mellitus, depression and pulmonary embolism is reported. Her assessment on admission to the rehab unit included acute left subcortical infarction, left medial frontal lobe, seizure disorder, multiple old infarcts, history of prior CVA with right-sided weakness and expressive aphasia, urinary tract infection, lumbosacral radiculopathy, metabolic encephalopathy, diabetes mellitus type 2 with hemoglobin A1c of 7.0, hypertension, depression, anxiety, GERD and a history of tobacco abuse. A complete description of her medical condition and history can be found in her medical record. Neuropsychological consultation was requested to provide assistance in the assessment of cognitive and emotional status and to provide recommendations and services. Prior to this most recent admission, she was living at home with 2 daughters and 2 grandchildren. The patient had 4 children. She was primarily a homemaker throughout her life, but also worked in real estate. She is a high school graduate. A past history of treatment for depression is reported. [facility] [address] [place] [address] CONSULTATION Name: RAINE AGUIRRE Room #: 504-1 [facility] IN ..#: [id number] Admission: 10/15/19 Attend Phys: Kevin Sanchez MD Discharge: Date of : 41 Report #: [id number] TECHNIQUES UTILIZED: Clinical interview, review of medical records, staff consultation and behavioral observation, mini mental status exam 2 standard version, and family interview - [id number]. EXAMINATION FINDINGS: The patient presented with a variable level of alertness during the assessment. She required her [id number] to assist in providing background information as well as participation in the assessment. The patient had difficulty with describing current symptoms and problems. Her affect appeared scared and dysphoric. The patient acknowledges subjective depression, but does not report feelings of anxiety. Decreased appetite and sleep are noted. Her performance on the MMSE 2 brief version was extremely low with a raw score of 10/16. Initial registration was repeated numerous times. Hearing is impaired and contributes to decreased cognition. She was 0/3 for immediate recall of 3 items after a brief time delay and distraction. The patient was oriented to time and place during the assessment. She also was able to indicate the reason for her hospitalization. Naming was within normal limits. Review of medical records: speech therapy note suggesting moderate to severe deficits in comprehension along with moderate to severe deficits in expression. The patient is presenting with a variable level of alertness and arousal wich is likely associated with delirium. A vascular neurocognitive condition is suggested with deficits in both initiation and motor inhibition. DIAGNOSTIC IMPRESSION: Delirium, hypoactive, acute. 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 Unspecified Anxiety Disorder RECOMMENDATIONS: Continued neuropsychological monitoring of cognitive status. Verbal praise and complements about her participation in therapies. Frequent orientation to place, time and purpose of treatment. Encouragement to take increased initiative will also be helpful. A consistent schedule will also be of benefit for overall adjustment. I will continue to [place] [address] CONSULTATION Name: RAINE AGUIRRE Room #: 504-1 [facility] IN ..#: [id number] Admission: 10/15/19 Attend Phys: Kevin Sanchez MD Discharge: Date of : 41 Report #: [id number] Thank you very much for allowing me to provide the consultation on this patient. <ELECTRONICALLY SIGNED> By: Karthik Cole, PhD 10/24/19 1022 [id number] Karthik Cole, PhD /nt
[2019-10-24 14:21] VITALS: BP 148/66
[2019-10-24 20:06] VITALS: BP 159/72
--- NOTE | 2019-10-25 03:36 | NUR ---
PT TRANSFERRING FROM CHAIR TO BED WITH GAIT BELT, WALKER AND ASSIST X2 AND IS TOLERATING FAIR. DENIES PAIN. INCONTINENT. RESTING COMFORTABLY. NO NEEDS VOICED. CALL LIGHT WITHIN REACH. FREQUENT OBSERVATION.
[2019-10-25 09:00] VITALS: BP 125/76
--- NOTE | 2019-10-25 10:02 | NUR ---
returned a phone call to daughter sheila left message asking for call back rt [facility] for discharge. cm spoke with rylee and other daughter via phone call. " after spending all day friday with mom, she has made progress but realistically she is going to need more rehab before coming home. she going to need 24 hr cg especial for toileting and meals. we all work. my goal is to get her home but she will need more rehab before coming home. neuro stated progress was not good. "/rylee. re- education on 24hr cg in home, and private duty. education on senior blue book and skilled section, encourage them if they would like referral sent going to need list choice and some might not be taking any new admits rt covid. " again would like to be able to get her home but she going to need more rehab and would like to look into medicaid, [facility] and [facility] place for rehab."/rylee. referral sent to [facility] and skilled choice.
--- NOTE | 2019-10-25 13:05 | NUR ---
Nutrition followup: Pt continues on rehab for therapies post CVA. PO intake had been 50-80% of meals but past few days < 50%. Pt unable to verbalize food preferences for RD but did agree to try ensure pudding and magic cup-add TID. Dtr brought in food friday and ate 75% per notes. Possibly tiring of food here. Continues with NMES with ST. No weight since admit. Supplemental vitamin D has been ordered for deficiency. BG well controlled, not concerned about additional carb content of Magic cups at this time. RD reviewed choosing nutrient dense foods first on trays including supplements with pt. REC obtain new weight and follow for improved intake trends, supplement tolerance.
--- NOTE | 2019-10-25 16:30 | NUR ---
ASSUMED CARE OF PT AT 0700. PT IS A&OX1 AND VITAL SIGNS ARE STABLE. PT DENIES PAIN AND PARTICIPATED IN SHCEDULED THERAPIES. ACCU CHECK IN AM. INCONTINENT OF BOWEL AND BLADDER THIS AFTERNOON, CONTINENT OF BOWEL AND BLADDER THIS AM. SEIZURE PRECAUTIONS IN PLACE. DAUGHTER AT BEDSIDE THIS AFTERNOON. PT UP FOR ALL MEALS WITH 100% SUPERVISION. PT ENCOURAGED TO INCREASE FLUID INTAKE. FALL PRECAUTIONS IN PLACE AND NURSING WILL CONTINUE TO MONITOR.
[2019-10-25 18:49] VITALS: BP 108/47
--- NOTE | 2019-10-26 01:57 | NUR ---
PT ALERT AND ORIENTED X 2. PT TOOK HS MEDS CRUSHED IN APPLESAUCE WITHOUT DIFFICULTY. PT DENIES PAIN OR DISCOMFORT. BED ALARM ON FOR SAFETY. PT HAS BEEN AWAKE MUCH OF NIGHT WATCHING TV.
[2019-10-26 05:50] LABS: CALCIUM 8.8 mg/dL (8.5-10.1); CREATININE 0.7 mg/dL (0.6-1.0); MAGNESIUM 1.7 mg/dL (1.8-2.4); POTASSIUM 3.7 mmol/L (3.5-5.1)
[2019-10-26 05:52] LABS: ABSOLUTE NEUTROPHILS 2.6 thou/uL (1.4-8.2); BASOPHILS 0.8 % (0.0-2.0); EOSINOPHILS 7.1 % (0.0-3.0); HEMATOCRIT 34.4 % (37.0-47.0); HEMOGLOBIN 11.7 gm/dL (12.0-15.0); LYMPHOCYTES 37.5 % (24.0-44.0); MCH 28.9 pg (26.0-34.0); MONOCYTES 7.5 % (1.0-8.0); PLATELET COUNT 197 thou/uL (150-400); POLYS 47.1 % (36.0-66.0); RBC 4.04 mil/uL (4.20-5.00); RDW 16.2 % (10.5-14.5); WBC 5.6 thou/uL (4.0-11.0)
[2019-10-26 07:45] VITALS: BP 120/70
--- NOTE | 2019-10-26 13:03 | NUR ---
team meeting, recommendation: dc 15th skilled vs home 24hr care givers with dme
--- NOTE | 2019-10-26 17:05 | NUR ---
ASSUMED CARE OF PT AT 0700. PT IS ALERT AND RESPONDS WHEN CALLED BY NAME. VITAL SIGNS ARE STABLE. PT DENIES PAIN AND DOES NOT APPEAR TO BE IN PAIN. VOIDING ADEQUATELY DURING SHIFT. PT INCONTINENT OF BLADDER AND DOES NOT INITIATE TOILETING, PT UNAWARE OF INCONTINENCE. SEIZURE PRECAUTIONS IN PLACE. FLUIDS ENCOUARGED BY NURSING STAFF. BOGGY HEELS NOTED ON ASSESSMENT, LOW AIRLOSS MATTRESS AND PRAFO BOOTS ORDERED AND ARE IN PLACE. PT REPORTED TO HAVE MULTIPLE SMALL BOWEL MOVEMENTS OVER THE LAST FEW DAYS THAT WERE SOFT AND APPEARED TO HAVE RIBBON-LIKE APPEARANCE. LLQ FIRM DURING AM ASSESSMENT, PT DENIES DISCOMFORT. BOWEL SOUNDS ACTIVE IN ALL QUADRANTS. ORDERS OBTAINED FOR KUB, PROVIDER AWARE OF RESULTS, NO ORDERS AT THIS TIME. FALL PRECAUTIONS IN PLACE AND NURSING WILL CONTINUE TO MONITOR.
[2019-10-26 19:15] VITALS: BP 101/62
--- NOTE | 2019-10-26 22:18 | NUR ---
PT ALERT AND ORIENTED X 1. UP IN W/C ALL EVENING. TRANSFERRED TO BED AT WITH ASSIST X 2. RIGHT SIDED WEAKNESS. PT TAKES MEDS CRUSHED IN APPLESAUCE. PRAFO BOOTS PUT ON IN BED. PT DENIES PAIN OR DISCOMFORT. BED ALARM ON FOR SAFETY. PT CHECKED ON HOURLY ROUNDS.
[2019-10-27 07:20] VITALS: BP 148/75
--- NOTE | 2019-10-27 12:00 | NUR ---
referral sent to [facility] for skilled rehab dc on . will cont following as needed for dc needs.
--- NOTE | 2019-10-27 16:36 | NUR ---
ASSUMED CARES AT 0700. PT ORIENTED TO PERSON ONLY FORGETFUL. DENIES PAIN. VITALS REMAIN STABLE. PT CONTINUES TO HAVE RIGHT SIDED WEAKNESS. SUPERVISION PROVIDED WITH MEALS, PT EATING 50-70% OF HER MEAL REMAINS ON NECTAR THICK FLUIDS AND TOLERATED WELL. PT UP WITH 1 MIN-MOD ASSIST, GB AND WALKER AND TOLERATED WELL. Q1H VISUAL CHECKS. CALL LIGHT WITHIN REACH. FALL PRECAUTIONS IN PLACE
[2019-10-27 19:15] VITALS: BP 104/72
[2019-10-28 08:00] VITALS: BP 142/83
--- NOTE | 2019-10-28 15:46 | NUR ---
PT CARE ASSUMED AT 0700. A&Ox1 TO SELF. UP IN THE WHEELCHAIR MOST OF THE MORNING. HAD PT/OT/ST. SEIZURE PRECAUTIONS. HEELS ARE A BIT BOOGY. Q2 TURNS. AM BLOOD SUGAR WITH SLIDING SCALE. NO INSULINE NEEDS TODAY. PT WAS ABLE TO TAKE HER SMALLER PILLS WITH PUDDING FOLLOWED BY A SIP OF NECTAR THICK FLUIDS. KEPPRA WAS MIXED IN WITH PUDDING AND PT WAS ABLE TO EASILY SWALLOW WITHOUT COUGHING. HARD OF HEARING WITH HEARING AIDS IN PLACE. DAUGHTER VISITED AND AT BEDSIDE ALL AFTERNOON. FALL PROTOCOL IN PLACE. CALL LIGHT IN REACH.
--- NOTE | 2019-10-28 17:35 | HC ---
[facility] [place] [address] CONSULTATION Name: RAINE AGUIRRE Room #: 504-1 ADM IN ..#: [id number] Admission: 10/15/19 Attend Phys: Kevin Sanchez MD Discharge: Date of : 41 Report #: [id number] THIS REPORT FOR: cc: Juvneal Donis MD,Juvenal Arechiga,Antonio Nunez MD ~ CC: Kevin Donis DATE OF SERVICE: 10/18/2019 HISTORY OF PRESENT ILLNESS: This is a 79-year-old female patient who is not able to provide much history. She is aphasic. Her daughter is here. She indicated that roughly about 14-15 days ago, she started having weakness on the right side and aphasia. This was happening in an episode. She had a stroke on that side and that stroke has caused paralysis and weakness. It left her with some residual problem, but the patient was still able to function. Because of these recurrent episodes of right-sided weakness, she was taken to [facility] and was admitted there and as I understand, she had a full paralysis of the right side. She was transferred here last Friday because the daughter lives close by and looks like it was because of convenience. I have some of the records from [facility]. It looks like they had described some restless leg syndrome, lumbar radiculopathy there. After the first stroke, she was on a combination of aspirin and Plavix, but then she went on monotherapy. During that hospitalization, it looks like she also had a urinary tract infection. She was in and out of sedation that time. Her history is also positive for depression, diabetes. She has a suggestion of a seizure. She apparently had two EEG. I do not have those reports and I do not have any echocardiogram report. She had a prior history of hysterectomy and cholecystectomy. She does have prior strokes. She had a recent stroke on MRI as I understand from the records. A 14-point review of system was carried out and that was her relevant 14-point review of systems. She had multiple risk factors for stroke including high cholesterol. She is a smoker. She is a diabetic. She has a fracture repair as I understand. That was a relevant 14-point review of system. PAST MEDICAL HISTORY: Positive for stroke. FAMILY HISTORY: Unremarkable. SOCIAL HISTORY: She smokes. PHYSICAL EXAMINATION: Indicate she is alert. She will say a few words, but does have a very sparse speech and is able to say just a couple of words. She does follow simple commands, but not enough [place] [address] CONSULTATION Name: RIANE AGUIRRE Room #: 504-1 [facility] IN ..#: [id number] Admission: 10/15/19 Attend Phys: Kevin Sanchez MD Discharge: Date of : 41 Report #: [id number] examination. She can count fingers, but I cannot tell about hemianopsia. She does have a right hemiplegia. I tried to do the position sense and I could not get a good feeling about that. There is no meningeal sign. There is no carotid bruit. I could not do the reflexes because she could not relax. I could not look at the fundus. She is an obese individual whose hearing and visual looks adequate. Blood pressure is 168/73, respiration is 20, pulse is 74, temperature is 98.5. White count is 5. Her vitamin D is very low. LDL is 84. Pulses are somewhat difficult to feel. Cardiac physical examination does not show any atrial fibrillation. No respiratory difficulty was noticed. RADIOLOGICAL DATA: She did have a CT scan of the head here, which showed old changes. She had extensive vascular disease in the brain, which is chronic. It has progressed to her and same finding was noticed on CT and restart CT angiogram showed atherosclerotic disease. IMPRESSION: 1. Cerebrovascular accident. 2. Recurrent cerebrovascular accident. 3. Extensive disease on the brain because of multiple vascular risk factors. 4. Seizure history and the patient is on Keppra and it is presumed because of stroke. 5. Vitamin D deficiency. 6. From all indication, it looks like she has vascular dementia, but it is difficult to tell for sure because of aphasia. RECOMMENDATIONS: 1. I do not know what workup has been done. If we need to do more workup in this patient, she needs a repeat MRI and followed by any source of embolization. I talked to the daughter and she does not want any further workup starting with MRI of the brain and looking for any source of embolization and we will respect her wishes because it is unlikely it is going to change a whole lot with such extensive changes in the brain. 2. I will suggest checking a UA to look for urinary tract infection because that will aggravate the symptoms. 3. I will suggest checking a TSH, which I ordered. 4. I will suggest correcting her vitamin B12 deficiency. Thank you very much for this referral. I do not plan to follow up this patient, but please let me know if the daughter wants to have the further testing in future if things changes and you want me to follow up this patient. <ELECTRONICALLY SIGNED> By: Antonio Arechiga MD 10/28/19 1735 [id number] Antonio Arechiga MD /nt
[2019-10-28 19:30] VITALS: BP 141/64
--- NOTE | 2019-10-29 03:05 | NUR ---
UP TO TOILET WITH GAIT BELT, WALKER, AND CONTACT GUARD ASSIST. VOIDING WELL WITH SMALL BM. ON SIDE, LOW AIR LOSS THERAPY, SIDERAILS PADDED. TOLERATING NECTAR THICK LIQUIDS AND MEDS IN PUDDING.
[2019-10-29 04:55] VITALS: BP 136/66
--- NOTE | 2019-10-29 13:35 | NUR ---
ASSUMED CARES AT 0700. PT ORIENTED TO PERSON ONLY, CONFUSED. SELECTIVE &/ DELAYED RESPONSES. VITALS ARE STABLE. DENIES PAIN. PT VERY SLEEPY THIS AFTERNOON AFTER THERAPY, SLEEPING ON THE RECLINER. CONTINUES TO HAVE RIGHT SIDED WEAKNESS AND NEGLECT. SEIZURE PRECAUTIONS MAINTAINED. PT UP WITH 1 MIN ASSIST, GB AND WALKER, REQUIRES MULTIPLE CUES. INCONTINENT OF BLADDER THIS AM, CHANGED AND CLEANED. TOILETING PROVIDED NEEDED. Q1H VISUAL CHECKS. CALL LIGHT WITHIN REACH. FALL PRECAUTIONS IN PLACE
--- NOTE | 2019-10-29 16:19 | NUR ---
both [facility] for skilled rehab on . cm discussed with daughter rylee 1st choice is [facility] since closer to home. cm left message for leopoldo with [facility]. will cont following as needed for dc needs.
[2019-10-29 19:53] VITALS: BP 155/74
--- NOTE | 2019-10-30 02:06 | NUR ---
WITH WALKER, GAIT BELT, AND CONTACT GURAD ASSIST, PATIENT UP TO TOILET FOR SMALL VOID AND BM, THEN TO BED. ABLE TO ROTATE CLOCKWISE WITH CUEING BEFORE SITTING ON THE BED AND TURNING ON SIDE WITH PRAFO BOOTS TO OFFLOAD HEELS. PLEASANT, RIGHT SIDED WEAKNESS
--- NOTE | 2019-10-30 07:39 | NUR ---
ASSUMED CARE AT 0700. PATIENT IS ALERT AND ORIENTED X1 TO SELF. PATIENT IS VERY [place]. PATIENT HAS BILATERAL HEARING AIDS IN PLACE. PATIENT HAS RIGHT SIDED WEAKNESS. PATIENT REMAINS ON SZ PRECAUTIONS. LUNGS ARE CLEAR AND DEMINISHED. ABD IS SOFT WITH BSX4. PATIENT VOIDS INFREQ RICKY COLORED URINE. CONTINUE ON Q2 VOIDING TRIALS. UP IN W/C TO DINING ROOM FOR MEALS. FALL AND SAFETY PROTOCOLS IN PLACE. DENIES PAIN AT THIS TIME. CONTINUES TO PROGRESS TOWARDS D/C GOALS. WILL CONTINUE TO MONITER.
[2019-10-30 08:00] VITALS: BP 105/61
[2019-10-30 20:00] VITALS: BP 153/89
--- NOTE | 2019-10-30 23:39 | NUR ---
PT UP IN RECLINER ALL EVENING. ASSISTED TO BED AT HS WITH ASSIST X 1. INCONT OF URINE. PT TAKES MEDS CRUSHED IN PUDDING WITHOUT DIFFICULTY. PT DENIES PAIN OR DISCOMFORT. PRAFO BOOTS ON IN BED. BED ALARM ON FOR SAFETY. PT APPEARS TO BE SLEEPING ON HOURLY ROUNDS.
--- NOTE | 2019-10-31 07:38 | NUR ---
ASSUMED CARE AT 0700. PATIENT IS ALERT AND ORIENTED TO PERSON ONLY. PATIENT HAS RIGHT SIDED WEAKNESS. PATIETN IS VERY [place] AND HAS BILATERAL HEARING AIDES LUNGS AR CLEAR AND DEMINISHED. ABD IS SOFT WITH BOWEL SOUNDS X4. UP TO THE BATHROOM WITH ASSIST OF 1 WITH GAIT BELT AND WALKER TO VOID RICKY COLORED BATHROOM TO VOID RICKY COLORED URINE. FALL AND SAFETY PROTOCOLS IN PLACE. DENIES PAIN. CONTINUES TO PROGRESS SLOWLY TOWARDS D/C GOALS. WILL CONTINUE TO MONITER.
[2019-10-31 08:00] VITALS: BP 128/78
[2019-10-31 19:10] VITALS: BP 123/45
--- NOTE | 2019-11-01 01:23 | NUR ---
PT ALERT AND ORIENTED X 1. INCONT OF URINE IN LARGE AMTS. TAKES MEDS CRUSHED IN PUDDING. PT DENIES PAIN OR DISCOMFORT. PRAFO BOOTS APPLIED AT HS BUT PT ASKED THAT THEY BE REMOVED SHORTLY AFTER PUT ON. BED ALARM ON FOR SAFETY. PT CHECKED ON HOURLY ROUNDS.
[2019-11-01 07:40] VITALS: BP 137/57
--- NOTE | 2019-11-01 10:20 | NUR ---
cm notified by leopoldo with [facility] that they may not have a bed for skilled rehab on . cont to keep [facility] on for possible needed 2nd skilled location. will cont following as needed for dc needs. updates for daughter rylee via phone.
--- NOTE | 2019-11-01 12:44 | NUR ---
Nutrition: pt continues on rehab for therapy post CVA. Average intake of meals past few days, 42%. Pt lacks initiation per ST. Eats better when staff present to assist. Variable intake of supplements. Offering ensure pudding and magic cup on trays. Last BM 10/29. BG controlled. no new weight to assess since 10/14. REC obtain. Videoswallow done today to assess for diet upgrade. Pt is being allowed thin liquids in provale cup per ST. RD continues to reinforce achieving 50% intake of meals, protein foods first and supplement intake. Planned discharge on 11/02. REC obtain new weight to assess for loss.
--- NOTE | 2019-11-01 15:42 | NUR ---
FAXED CLINICAL UPDATE TO [facility] SPOKE WITH ANIYAH IN ADM SHE RECEIVED UPDATE BUT WILL NOT HAVE A BED AVAILABLE TIL /FRIDAY. PT TO DC ON THURSDAY 11/02 NOTIFIED TRISTON (DALI) AND SHE WILL SPEAK WITH PT'S FAMILY AND SEE IF THEY WANT PT TO FO TO [facility]. DP TO FOLLOW.
--- NOTE | 2019-11-01 16:18 | NUR ---
PATIENT HAS BEEN WORKING WITH THERAPY, SWALLOW TEST DONE IN AM. PATIENT RESPONDS TO REDIRECTION - NEEDS ENCOURAGEMENT WHEN AMBULATING WITH WALKER. PATIENT HAS BEEN VOIDING. COMPLIANT WITH MEDICATIONS - TAKEN CRUSHED WITH PUDDING. PATIENT NOW WORKING WITH THIN LIQUIDS IN CUP DISTRIBUTING 5CC FLUIDS AT A TIME TO AID WITH SWALLOWING.
[2019-11-01 19:18] VITALS: BP 104/63
--- NOTE | 2019-11-02 04:20 | NUR ---
RECIEVED CARE OF THIS PATIENT AT 1900. PATIENT ALERT AND ORIENTED TO SELF ONLY. HAS R SIDED WEAKNESS. HAS A CUP FO DRINK FROM THAT ONLY ALLOWS 5ML AT A TIME TO BE DISPENSED. DENIES LAUREANO. SLEPT MOST OF NIGHT.
[2019-11-02 05:49] LABS: ABSOLUTE NEUTROPHILS 2.8 thou/uL (1.4-8.2); BASOPHILS 0.6 % (0.0-2.0); EOSINOPHILS 5.1 % (0.0-3.0); HEMATOCRIT 33.5 % (37.0-47.0); HEMOGLOBIN 11.8 gm/dL (12.0-15.0); LYMPHOCYTES 38.2 % (24.0-44.0); MCHC 35.2 g/dL (28.0-37.0); MCV 85.2 fL (80.0-100.0); MONOCYTES 7.4 % (1.0-8.0); PLATELET COUNT 172 thou/uL (150-400); POLYS 48.7 % (36.0-66.0); RBC 3.93 mil/uL (4.20-5.00); RDW 16.4 % (10.5-14.5); WBC 5.7 thou/uL (4.0-11.0)
[2019-11-02 06:16] LABS: CALCIUM 8.9 mg/dL (8.5-10.1); CREATININE 0.7 mg/dL (0.6-1.0); MAGNESIUM 1.7 mg/dL (1.8-2.4); POTASSIUM 3.8 mmol/L (3.5-5.1)
[2019-11-02 07:15] VITALS: BP 138/63
--- NOTE | 2019-11-02 11:27 | NUR ---
ASSUMED CARE AT 0700. PATIENT IS ALERT TO PERSON ONLY. PATIENT IS [place] AND HAS BILATERAL HEARING AIDES. [place] HAS RIGHT SIDED WEAKNESS. PAITENT IS UP WITH ASSIST OF 1 STAFF AND GAIT BELT AND WALKER TO BR. UP IN DINING ROOM WITH ST. FOR BREAKFAST. VITASTIM USED. PATIENT WAS TRIED ON PREVALE CUP AND THIN LIQUIDS. LIQUID MED HAD TO BE PUT IN NECTAR THICK LIUQIDS. FALL AND SAFETY PROTOCOLS IN PLACE. DENIES PAIN. CONTINUES TO PROGRESS TOWARDS D/C GOALS. WILL CONTINUE TO MONITER.
--- NOTE | 2019-11-02 11:36 | NUR ---
cm spent long conversation with both daughter via phone call. re-education that [facility] will not have bed until or friday or for skilled rehab. daughter rylee really wants [facility] and not [facility] [place] and location. don't have dme in home yet and if we go home i will want letter from saying she cant not go up stairs in order to get loan for stair lift and we will just have to have family take turns for now until can get her into skilled can not afford private duty. she will need hosptal bed but can not rent own that is like another car payment. very upset not had more communication with all MD and therapy"/rylee.
[2019-11-02 16:38] VITALS: BP 138/63
[2019-11-02 19:38] VITALS: BP 127/58
--- NOTE | 2019-11-02 23:28 | NUR ---
ASSUMED CARE OF PT AT 1930. PT IS A&O TO SELF, PLACE, & TIME. DENIES PAIN. IS STABLE. IS ON ROOM AIR. IS UP WITH 1 ASSIST, GB, WALKER. FALL PRECAUTIONS & HOURLY ROUNDING CONTINUED THIS SHIFT. LABS & VITALS REVIEWED. PT IS CURRENTLY IN BED SLEEPING. CALL LIGHT WITHIN REACH. WILL CONTINUE TO MONITOR.
[2019-11-03 08:04] VITALS: BP 101/62
[2019-11-03] MEDS ORDERED: VITAMIN D325 MC1 PO ×3 (10:33→11:50)
[2019-11-03] MEDS ORDERED: PLAVIX 75 MG TA75 M1 PO ×2 (10:33→11:50)
[2019-11-03] MEDS ORDERED: LEVETIRACE100 MG/1 M PO ×3 (10:33→11:50)
[2019-11-03] MEDS ORDERED: MAGOX 400400 MG PO ×3 (10:33→11:50)
[2019-11-03] MEDS ORDERED: FLOMAX0.4 MG PO ×3 (10:33→11:50)
[2019-11-03] MEDS ORDERED: MIRALAX119 GM PO ×3 (10:34→11:50)
[2019-11-03 11:00] VITALS: BP 138/63
[2019-11-03] MEDS ORDERED: VENTOLIN HFA 1818 GM INH ×2 (11:44→11:50)
--- NOTE | 2019-11-03 12:46 | NUR ---
DISCHARGE NOTE: SW notified that training went well with pt's family. Pt able to discharge home today with [facility]. SW faxed finalized discharge orders to [facility] and notified liaison, Art. Contact info for HH in discharge summary. [facility] to provide transportation home at 1500 today. SW left message for Manny in admissions at [facility], stating that pt does not need a skilled bed in their facility. No additional SW needs identified at this time, but is available to assist should needs arise.
[2019-11-03] MEDS ORDERED: ZOLOFT50 M1 PO (15:22)
--- NOTE | 2019-11-03 15:34 | NUR ---
DISCHARGE INSTRUCTIONS AND SCRIPTS GIVEN TO DAUGHTER. PATIENT LEFT UNTI IN GOOD CONDITON [facility]IA [facility].
== END 2019-11-03 15:29 | disposition home health service (06) | DRG 56 ==
PROVIDERS: Nurse Practitioner; Nurse Practitioner Family; ADMIT Physical Medicine & Rehabilitation; ATTEND Physical Medicine & Rehabilitation
DX: I69.351 Hemiplegia and hemiparesis following cerebral infarction affecting right dominant side (principal); I63.9 Cerebral infarction, unspecified; G93.41 Metabolic encephalopathy; N39.0 Urinary tract infection, site not specified; R53.81 Other malaise; G25.81 Restless legs syndrome; F32.9 Major depressive disorder, single episode, unspecified; E11.9 Type 2 diabetes mellitus without complications; I10 Essential (primary) hypertension; E78.00 Pure hypercholesterolemia, unspecified; K21.9 Gastro-esophageal reflux disease without esophagitis; F17.210 Nicotine dependence, cigarettes, uncomplicated; Z20.828 Contact with and (suspected) exposure to other viral communicable diseases; K46.9 Unspecified abdominal hernia without obstruction or gangrene; R41.0 Disorientation, unspecified; R41.9 Unspecified symptoms and signs involving cognitive functions and awareness; E55.9 Vitamin D deficiency, unspecified; G40.909 Epilepsy, unspecified, not intractable, without status epilepticus; F41.8 Other specified anxiety disorders; R33.9 Retention of urine, unspecified; R47.02 Dysphasia; M54.17 Radiculopathy, lumbosacral region; Z88.2 Allergy status to sulfonamides; Z90.710 Acquired absence of both cervix and uterus; Z90.49 Acquired absence of other specified parts of digestive tract; Z86.711 Personal history of pulmonary embolism; Z79.01 Long term (current) use of anticoagulants; Z86.718 Personal history of other venous thrombosis and embolism; Z79.82 Long term (current) use of aspirin; Z79.899 Other long term (current) drug therapy; Z80.0 Family history of malignant neoplasm of digestive organs
CPT/HCPCS: 10112

== ENCOUNTER 2019-11-18 20:09 | Emergency (ER) | payer OTHER ==
[~2019-11-18] VITALS: Ht 157.5 cm; Wt 77.1 kg
[~2019-11-18 20:09] MED LIST changes: +ASPIRIN325 PO; +COZAAR 50 MG TA50 M1 PO; +FLOMAX0.4 MG PO; +KEFLEX500 M1 PO; +KEPPRA 500 MG500 MG PO; +LEVETIRACE100 MG/1 M PO; +LIPITOR40 MG PO; +MAGOX 400400 MG PO; +METFORMIN HCL500 M3 PO; +MIRALAX119 GM PO; +VENTOLIN HFA 1818 GM INH; +VITAMIN D325 MC1 PO; +ZOLOFT50 M1 PO
[2019-11-18 22:07] LABS: URINE CLARITY CLOUDY; URINE COLOR ORANGE
[2019-11-18 22:08] LABS: SQUAMOUS 0-3 Few /LPF (0-3)
[2019-11-18 22:09] LABS: URINE RBC 3-10 Few /HPF (0-2); URINE WBC-REFLEX >25 Many /HPF (0-5)
[2019-11-18 22:10] LABS: BACTERIA-REFLEX 1-9 Few /HPF (None Seen); CASTS None Seen /LPF (None Seen); CRYSTALS None Seen /LPF (None Seen)
[2019-11-18] MEDS ORDERED: NYSTATIN1000000 UN TOP (22:38)
[2019-11-18] MEDS ORDERED: CIPROFLOXACIN500 M1 PO (22:38)
[2019-11-18] MEDS ORDERED: VALTREX1000 MG PO (22:38)
[2019-11-18 22:48] VITALS: BP 141/58
[2019-11-23 19:07] LABS: HSV 1 DNA Negative (Negative); HSV 2 DNA Negative (Negative)
== END 2019-11-18 23:01 | disposition home or self-care (01) ==
LOC: ER 20:09
PROVIDERS: Emergency Medicine
DX: N76.6 Ulceration of vulva (principal); R10.9 Unspecified abdominal pain; E11.9 Type 2 diabetes mellitus without complications; F32.9 Major depressive disorder, single episode, unspecified; I10 Essential (primary) hypertension; E78.00 Pure hypercholesterolemia, unspecified; K21.9 Gastro-esophageal reflux disease without esophagitis; G40.909 Epilepsy, unspecified, not intractable, without status epilepticus; F17.210 Nicotine dependence, cigarettes, uncomplicated; Z90.711 Acquired absence of uterus with remaining cervical stump; Z90.49 Acquired absence of other specified parts of digestive tract; Z86.711 Personal history of pulmonary embolism; Z86.73 Personal history of transient ischemic attack (TIA), and cerebral infarction without residual deficits; Z79.899 Other long term (current) drug therapy; Z79.82 Long term (current) use of aspirin; Z88.2 Allergy status to sulfonamides